=== PATIENT | male | born 1980 | race Caucasian/White ===

== ENCOUNTER 2021-04-10 18:00 | Inpatient (IN) ==
[2021-04-10] MEDS ORDERED: dexAMETHasone**PF** 10 MG/ML VIAL IV ONE (19:14)
[2021-04-10 19:30] LABS: Basophils # (auto) 0.02 K/uL (0-0.2); Basophils % (auto) 0.3 %; Eosinophils # (auto) 0.02 K/uL (0-0.5); Eosinophils % (auto) 0.3 %; Hematocrit (blood only) 38.9 % (42-52); Hemoglobin 13.5 g/dL (14.0-18.0); Immature Granulocytes # (auto) 0.02 K/uL (0.00-0.02); Immature Granulocytes % (auto) 0.3 %; Lymphocytes # (auto) 0.85 K/uL (1.2-3.4); Lymphocytes % (auto) 14.1 %; Mean Corpuscular Hemoglobin 30.6 pg (25-34); Mean Corpuscular Hgb Conc 34.7 g/dL (32-36); Mean Corpuscular Volume 88.2 fL (80-100); Mean Platelet Volume 9.6 fL (7.4-10.4); Monocytes # (auto) 0.51 K/uL (0.11-0.59); Monocytes % (auto) 8.5 %; Neutrophils # (auto) 4.59 K/uL (1.4-6.5); Neutrophils % (auto) 76.5 %; Platelet Count 283 K/uL (130-400); RDW Coefficient of Variation 12.9 % (11.5-14.5); RDW Standard Deviation 41.9 fL (36.4-46.3); Red Blood Count 4.41 M/uL (4.7-6.1); White Blood Count 6.01 K/uL (4.8-10.8)
--- NOTE | 2021-04-10 19:33 | XRay Report ---
XR chest 1V portable CLINICAL HISTORY: cough, covid + COMPARISON STUDY: No previous studies for comparison. FINDINGS: No pneumothorax or pleural effusion is noted. Moderate to extensive multifocal bilateral ai rspace opacities are present. There is mild enlargement of the cardiac silhouette. IMPRESSION: 1. Moderate to extensive airspace opacities within the lungs suggestive of viral pneumonia. 2. Mild enlargement of the cardiac silhouette. ACT 112: Negative or not required by law. Electronically signed by: Joseph Mendez M.D. 04/10/2021 7:31 PM
[2021-04-10] MEDS ORDERED: CEFEPIME 2,000 MG/20 ML VIAL IV STA (19:36)
--- NOTE | 2021-04-10 19:36 | Emergency Department Note ---
History of Present Illness General Chief complaint: Cough Stated complaint: COVID +, NOT GETTING BETTER, SOB, COUGHING Time Seen by Provider: 04/10/21 18:57 History of Present Illness Maximum Pain Intensity: 9 40-year-old male presents to the ED with a chief complaint of increased shortne ss of breath. The patient was diagnosed with Covid on Friday with a home test. He started having symptoms Friday, 9 days ago. The patient states that he had monoclonal antibodies on April 07. He reports some associated nausea and headaches in addition to fevers. His primary reason for coming in today was that his pulse oximetry was running low at home in the 80s. He states that he also feels lightheaded and his breathing is worse with exertion. His [id number], Dr. Finebritney started him on Xarelto. Overall the patient states that his breathing feels worse. He is having a productive cough that is occasionally red/purple Home Medications Medication Instructions Recorded Confirmed Type losartan 25 mg tablet 0 mg PO DAILY 04/10/21 04/10/21 History rivaroxaban 10 mg tablet (Xarelto) 0 mg PO DAILY 04/10/21 04/10/21 History simvastatin 20 mg tablet 20 mg PO DAILY 04/10/21 04/10/21 History Allergies Allergy/AdvReac Type Severity Reaction Status Date / Time No Known Allergies Allergy Unverified 04/10/21 19:38 Past Med/Surg History Medical History (Updated 04/10/21 @ 20:52 by Rosendo Cardenas DO) Asthma High cholesterol Hypertension Social History (Updated 04/10/21 @ 19:54 by Rosendo Cardenas DO) Smoking Status: Former smoker Tobacco Type: Cigarettes Age Quit Using Tobacco: 31; Feels Safe at Home: Yes Review of Systems A total of 10 systems reviewed and were otherwise negative Physical Exam Vital Signs Vital Signs - 24 hr 04/10/21 18:25 04/10/21 19:10 04/10/21 19:25 Temperature 36.8 C 37.2 C Temperature Source Temporal Artery Scan Oral Pulse Rate 98 H Pulse Rate [Left Radial] 95 H Pulse Rhythm [Left Radial] Regular Pulse Strength [Left Radial] Normal Respiratory Rate 20 22 18 Respiratory Effort / Characteristics Non-Labored Spontaneous Spontaneous Labored Short of Breath SOB on Exertion Respiratory Depth Normal Normal Respiratory Pattern Regular Tachypnea Blood Pressure 150/82 H Blood Pressure [Right Arm] 136/82 Blood Pressure Mean 104 Blood Pressure Mean [Right Arm] 100 Blood Pressure Position Sitting Blood Pressure Position [Right Arm] Lying Pulse Oximetry 93 86 L 94 Oxygen Delivery Method Room Air Room Air Nasal Cannula Oxygen Flow Rate 2 Sepsis Recent Fever Within 48 Hours No Sepsis New/Unexplained Change in Mental Status No Sepsis Action Taken by Nursing No Action Required CONSTITUTIONAL/VITAL SIGNS: Reviewed / noted above. GENERAL: Non-toxic in appearance. INTEGUMENTARY: Warm, dry, and [place]. HEAD: Normocephalic. EYES: without scleral icterus or trauma. ENT/OROPHARYNX: clear and moist. LYMPHADENOPATHY/NECK: Is supple without lymphadenopathy or meningismus. RESPIRATORY: Some mild bilateral rhonchi auscultation bilaterally. Mild increased work of breathing. CARDIOVASCULAR: Regular rate and rhythm. GI/ABDOMEN: Soft and nontender. No organomegaly or pulsatile mass. EXTREMITIES: Warm and well perfused. BACK: No CVA tenderness. NEUROLOGICAL: Intact without focal deficits. PSYCHIATRIC: normal affect. MUSCULOSKELETAL: Normally developed with good muscle tone. TRIAGE NURSING DOCUMENTATION REVIEWED. Course Administered Medications Discontinued Medications Dexamethasone Sodium Phosphate (DexamethasonePf 10 Mg/Ml Vial) 10 mg IV NOW ONE Stop: 04/10/21 19:15 Last Admin: 04/10/21 19:20 Dose: 10 mg Documented by: [id number] Cefepime HCl (Maxipime) 2,000 mg in 20 mls @ 5 mls/min IV NOW STA; Protocol Stop: 04/10/21 19:39 Last Admin: 04/10/21 19:41 Dose: 5 mls/min Documented by: [id number] Ioversol (Optiray 320 125ml) 120 ml IV ONCE ONE Stop: 04/10/21 20:13 Last Admin: 04/10/21 20:15 Dose: 120 ml Documented by: [id number] Medical Decision Making Differential Diagnosis The differential was considered includes acute myocardial infarction, acute coronary syndrome, myocarditis, pericarditis, pericardial effusions /tamponad, esophageal perforation, pulmonary embolism, pneumonia, pneumothorax, cardiomyopathy, congestive heart, anemia , COPD/asthma exacerbation. Medical Records Attestation: I reviewed the patient's medical records. Home Medications Current Medication List: was personally reviewed by me Laboratory Data Attestation: I reviewed the patient's lab results. Result diagrams: 04/10/21 19:12 04/10/21 19:12 Lab Results 04/10/21 04/10/21 Range/Units 19:12 19:12 WBC 6.01 (4.8-10.8) K/uL RBC 4.41 L (4.7-6.1) M/uL Hgb 13.5 L (14.0-18.0) g/dL Hct 38.9 L (42-52) % MCV 88.2 (80-100) fL MCH 30.6 (25-34) pg MCHC 34.7 (32-36) g/dL RDW Std Deviation 41.9 (36.4-46.3) fL RDW Coeff of [place] 12.9 (11.5-14.5) % Plt Count 283 (130-400) K/uL MPV 9.6 (7.4-10.4) fL Immature Gran % (Auto) 0.3 % Neut % (Auto) 76.5 % Lymph % (Auto) 14.1 % [place] % (Auto) 8.5 % Eos % (Auto) 0.3 % Baso % (Auto) 0.3 % Neut # (Auto) 4.59 (1.4-6.5) K/uL Lymph # (Auto) 0.85 L (1.2-3.4) K/uL [place] # (Auto) 0.51 (0.11-0.59) K/uL Eos # (Auto) 0.02 (0-0.5) K/uL Baso # (Auto) 0.02 (0-0.2) K/uL Immature Gran # (Auto) 0.02 (0.00-0.02) K/uL Sodium 136 (136-145) mmol/L Potassium 3.6 (3.5-5.1) mmol/L Chloride 104 (98-107) mmol/L Carbon Dioxide 25 (21-32) mmol/L Anion Gap 7.0 (3-11) BUN 10 (7-18) mg/dl Creatinine 0.81 (0.6-1.4) mg/dl Est Cr Clr Drug Dosing 158.2 ml/min Est GFR ( Amer) 129.8 ml/min Est GFR (Non-Af Amer) 112.0 ml/min BUN/Creatinine Ratio 12.7 (10-20) Glucose 109 H (70-99) mg/dl Calcium 8.9 (8.5-10.1) mg/dl Total Bilirubin 0.9 (0.2-1) mg/dl AST 99 H (15-37) U/L ALT 98 H (12-78) Alkaline Phosphatase 66 (45-117) U/L Troponin I < 0.015 (0-0.045) ng/ml Total Protein 7.4 (6.4-8.2) gm/dl Albumin 3.2 L (3.4-5.0) gm/dl Globulin 4.2 H (2.5-4.0) gm/dl Albumin/Globulin Ratio 0.8 L (0.9-2) Imaging Data Radiologist's Impression: Chest X-Ray 04/10/21 18:35 XR chest 1V portable CLINICAL HISTORY: cough, covid + COMPARISON STUDY: No previous studies for comparison. FINDINGS: No pneumothorax or pleural effusion is noted. Moderate to extensive multifocal bilateral airspace opacities are present. There is mild enlargement of the cardiac silhouette. IMPRESSION: 1. Moderate to extensive airspace opacities within the lungs suggestive of viral pneumonia. 2. Mild enlargement of the cardiac silhouette. ACT 112: Negative or not required by law. Electronically signed by: Joseph Mendez M.D. 04/10/2021 7:31 PM Chest CTA 04/10/21 19:14 CT ANGIOGRAPHY OF THE CHEST, PULMONARY EMBOLUS PROTOCOL CLINICAL HISTORY: covid, sob COMPARISON STUDY: Chest radiograph performed earlier today. TECHNIQUE: Following IV administration of 120 mL of Optiray, helical axial images of the chest were obtained utilizing the pulmonary embolus protocol. Maximal intensity projections and sagittal and coronal reformats were viewed on an independent 3D workstation. IV contrast was administered without complication. Automated exposure control was utilized for the study. A dose lowering technique was utilized adhering to the principles of ALARA. CT DOSE: 848.71 mGy.cm FINDINGS: No pulmonary emboli are identified. There is no thoracic aortic dissection. There is no pericardial effusion. No enlarged thoracic lymph nodes are noted. Extensive ground glass opacities with developing consolidation throughout the lungs are noted. These are most pronounced within the bilateral lower lobes. There is no cavitation. No pneumothorax or pleural effusion is noted. Visualized portions of the upper abdomen are unremarkable. IMPRESSION: 1. No pulmonary emboli identified. 2. Extensive groundglass opacities with developing consolidation throughout the lungs consistent with viral pneumonia. ACT 112: Negative or not required by law. Electronically signed by: Joseph Mendez M.D. 04/10/2021 8:36 PM ECG Data Attestation: I personally reviewed and interpreted this ECG as follows: Additional Comments: Twelve-lead EKG: Per my interpretation shows a normal sinus rhythm at a rate of 85. No ST elevation. No PVCs. Normal QTC. MDM Narrative Patient presents to the ED with a diagnosis of Covid. He is day #9 from onset of symptoms. He has had monoclonal antibodies 3 days ago. The patient was found to be hypoxic here in the ED. His saturations with ambulation was 87%. At rest he was around 88-90. The patient has a chest x-ray showing bilateral pneumonia. CT scan confirms this. No PE. CBC and chemistry panel did not show any significant abnormalities other than a mild transaminitis likely viral related. EKG showed a normal sinus rhythm. The patient was given IV Decadron. He was also given IV cefepime empirically. He will be seen by the hospitalist for further inpatient evaluation and care. Impression & Plan 2019 novel coronavirus-infected pneumonia (NCIP), Hypoxia Discharge Plan Visit Data Chief Complaint: Cough Stated Complaint: COVID +, NOT GETTING BETTER, SOB, COUGHING ED Provider: Rosendo Cardenas Discharge Problem: 2019 novel coronavirus-infected pneumonia (NCIP), Hypoxia Patient Disposition: Being Evaluated by Hospitalist Forms Stand Alone Forms: My [facility] Prescriptions Prescriptions: No Action simvastatin 20 mg Tablet 20 mg PO DAILY RF: 0 losartan 25 mg Tablet 0 mg PO DAILY RF: 0 Xarelto 10 mg Tablet 0 mg PO DAILY RF: 0 Referrals Referrals: PCP,NO [Primary Care Provider] -
[2021-04-10 19:59] LABS: Alanine Aminotransferase 98 (12-78); Albumin Level 3.2 gm/dl (3.4-5.0); Aspartate Aminotransferase 99 U/L (15-37); BUN Creatinine Ratio 12.7 (10-20); Blood Urea Nitrogen 10 mg/dl (7-18); Calcium 8.9 mg/dl (8.5-10.1); Carbon Dioxide 25 mmol/L (21-32); Chloride 104 mmol/L (98-107); Creatinine Clr Calc Pharmacy 158.2 ml/min; Est GFR (African American) 129.8 ml/min; Glucose 109 mg/dl (70-99); Potassium 3.6 mmol/L (3.5-5.1); Sodium 136 mmol/L (136-145)
[2021-04-10 20:01] LABS: Albumin Globulin Ratio 0.8 (0.9-2); Alkaline Phosphatase 66 U/L (45-117); Bilirubin,Total 0.9 mg/dl (0.2-1); Globulin 4.2 gm/dl (2.5-4.0); Total Protein 7.4 gm/dl (6.4-8.2)
[2021-04-10] MEDS ORDERED: OPTIRAY 320 125ml IV ONE (20:12)
[2021-04-10 20:32] LABS: Troponin I < 0.015 ng/ml (0-0.045)
--- NOTE | 2021-04-10 20:37 | CT Scan Report ---
CT ANGIOGRAPHY OF THE CHEST, PULMONARY EMBOLUS PROTOCOL CLINICAL HISTORY: covid, sob COMPARISON STUDY: Chest radiograph performed earlier today. TECHNIQUE: Following IV administration of 120 mL of Optiray, helical axial images of the chest were o btained utilizing the pulmonary embolus protocol. Maximal intensity projections and sagittal and cor onal reformats were viewed on an independent 3D workstation. IV contrast was administered without co mplication. Automated exposure control was utilized for the study. A dose lowering technique was ut ilized adhering to the principles of ALARA. CT DOSE: 848.71 mGy.cm FINDINGS: No pulmonary emboli are identified. There is no thoracic aortic dissection. There is no pe ricardial effusion. No enlarged thoracic lymph nodes are noted. Extensive ground glass opacities with developing consolidation throughout the lungs are noted. These are most pronounced within the bilate ral lower lobes. There is no cavitation. No pneumothorax or pleural effusion is noted. Visualized por tions of the upper abdomen are unremarkable. IMPRESSION: 1. No pulmonary emboli identified. 2. Extensive groundglass opacities with developing consolidation throughout the lungs consistent with viral pneumonia. ACT 112: Negative or not required by law. Electronically signed by: Jsoeph Mendez M.D. 04/10/2021 8:36 PM
[2021-04-10 20:55] LABS: Appearance Urine Clear (Clear); Bacteria Urine Automated Negative (Negative); Blood Urine Negative (Negative); Color Urine Dark Yellow; Glucose Urine UA Negative (Negative); Ketones Urine 2+ (Negative); Leukocyte Esterase Urine Negative (Negative); Nitrite Urine Negative (Negative); Protein Urine 2+ (Negative); RBC Urine Automated 0-4 /hpf (0-4); Specific Gravity Urine 1.032 (1.000-1.030); Urobilinogen Urine Negative (Negative); pH Urine 6.5 (4.5-7.5)
[2021-04-10 20:57] LABS: Bilirubin Urine 1+ (Negative)
[2021-04-10] MEDS ORDERED: REMDESIVIR 200 MG in SODIUM CHLORIDE 0.9% 210 ML IV STA (21:01)
[2021-04-10] MEDS ORDERED: AZITHROMYCIN 250 MG TAB PO STA (21:04)
[2021-04-10 21:15] LABS: C Reactive Protein 7.22 mg/dl (0-0.29); Ferritin 785.6 ng/ml (8-388)
[2021-04-10] MEDS ORDERED: FAMOTIDINE 20MG/5ML IV PUSH IV STA (21:26)
--- NOTE | 2021-04-10 21:44 | History & Physical Report ---
Date of Service April 10, 2021 Assessment & Plan (1) 2019 novel coronavirus-infected pneumonia (NCIP): Plan: Milton is a 40 yo gentleman who tested positive for covid 19 on 04/03/21 who presented to [facility] for worening respiratory symptoms de spite receiving monoclonal antibody therapy. - COVID 19 positive on admission -- severe disease - CXR and Chest CTA showing signs of virla PNA. Procal ordered to assess for superimposed bacterial process - not elevated. - hypoxic on admission -- O2 sat improved with 2L via NC - LDH elevated to 555, CRP to 7.22 mg/dl. Patient not a candidate for tocilizumab due to CRP < 7.5 mg/dl - Start Remdesirivir - Continue Dexamethasone 6mg IV for 9 additional days - Azithromycin 500mg given on admission; 250mg daily for 6 days thereafter - Duonebs q6 prn (2) Elevated transaminase level: Plan: - LFTs < 10 times the upper limit of normal, Remdesirvir safe to use - elevation likely secondary to acute viral illness - trend CMP (3) High cholesterol: Plan: - continue home dose simvastatin (4) Hypertension: Plan: - continue home dose losartan (5) Asthma: Plan: - mild intermittent - duo nebs as above Diet: Heart Healthy DVT ppx: Lovenox 40mg SQ q12 Dispo: Med/tele with covid 19 precautions COde: Full, I discuss with patient History of Present Illness Primary Care Provider: NO PCP Milton is a 40 yo gentleman with a PMHx of hypertension, hyperlipidemia and mild-intermittent asthma who presented to [facility] for evaluation of worsening oxygen saturation, dyspnea on exertion, and coughing spells. Milton developed a constellation of symptoms (general malaise, fever, cough, headache, nausea/vomiting, diarrhea) on 04/02/21. The next day, on 04/03/21 he took an at-home covid-19 test and it was positive. He went to a hospital in [place], [place] on 04/07/21 for evaluation of worsening symptoms - this facility did not have any monoclonal antibodies for covid 19 in stock - they recommended supportive care and discharged him from their emergency department. Later that same day, he went to [facility] in [place], [place] where he was administered a dose of "a monoclonal antibody - the one that works against omicron," (sotrovimab?). Since receiving this therapy, his fevers have resolved, however the respiratory symptoms have progressed. 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 Milton had not been immunized against covid 19. In the ED, he was afebrile with a HR of 95bpm, BP of 139/82, RR of 18, satting 86% on room air. O2 saturation improved to 94% with 2L of supplement O2 via NC. His WBC was normal, although he was lymphopenic. His kidney function and electrolytes wer WNL. AST elevated to 99, ALT elevated to 98. Trop was undetectable. UA was not concerning for infection. A quad RVP was + for covid 19, neg for Flu A/B and RSV. EKG showing NSR without acute ST segment changes. CXR showing moderate to extensive airspace opacities within lungs, consistent with a viral PNA. Chest CTA was negative for pulmonary embolus, but extensive groundglass opacities with developing consolidation throughout the lungs were visualized. He was given 10mg of IV Dexamethasone. Allergies Allergy/AdvReac Type Severity Reaction Status Date / Time No Known Allergies Allergy Unverified 04/10/21 19:38 Home Medications Medication Instructions Recorded Confirmed Type losartan 25 mg tablet 0 mg PO DAILY 04/10/21 04/10/21 History rivaroxaban 10 mg tablet (Xarelto) 0 mg PO DAILY 04/10/21 04/10/21 History simvastatin 20 mg tablet 20 mg PO DAILY 04/10/21 04/10/21 History Past Med/Surg History Medical History (Updated 04/11/21 @ 16:31 by Andi Claudio MD) Asthma High cholesterol Hypertension Social History (Updated 04/10/21 @ 19:54 by Rosendo Cardenas DO) Smoking Status: Former smoker Tobacco Type: Cigarettes Age Quit Using Tobacco: 31; Hx Alcohol Use: Yes Alcohol type: beer and hard liquor Hx Substance Use: No Beliefs That Will Affect Care: None marital status: Current Living Situation: Spouse and Family Current Living Situation Comment: Home Feels Safe at Home: Yes Safety Concerns: Feels Safe At This Time Assistive Devices: None Review of Systems Constitutional: + fatigue Respiratory: + cough and + dyspnea on exertion Gastrointestinal: + nausea and + diarrhea/loose stools Physical Exam Constitutional: WD/WN, vitals as above + obese and cooperative; no acute distress and no altered mental status Eyes: + anicteric sclerae ENMT: external ear and nose normal, oropharynx normal Neck: normal visual inspection and trachea midline Respiratory: normal respiratory effort and + cough; no labored breathing and does not use accessory muscles Auscultation: + diminished lung sounds (air movement restricted b/l); no wheezes Cardiovascular: RRR, no murmur, no edema Heart Sounds: normal S1 and normal S2 Extremities: no pedal edema Gastrointestinal (Abdomen): normal bowel sounds, soft, nontender, no hepatosplenomegaly Musculoskeletal: Head/Neck/Chest: normocephalic and head atraumatic Skin: no rashes, warm and dry Psychiatric: A+Ox3, euthymic affect Results & Data Results & Data ([facility]) Vital Signs (Past 12 Hours) Vital Signs Temp Pulse Pulse Resp BP BP Pulse Ox 04/10/21 21:13 80 20 128/83 95 04/10/21 19:25 18 94 04/10/21 19:10 37.2 C 95 H 22 136/82 86 L 04/10/21 18:25 36.8 C 98 H 20 150/82 H 93 Code Status & VTE Plan VTE Prophylaxis Plan VTE Prophylaxis will be ordered: Yes Supervising Physician Co-Signing Physician Notes Attending addendum: I have physically seen this patient, have supervised the medical residents activities, and agree with the H&P unless as otherwise noted. Assessment and Plan: COVID-19 pneumonia with hypoxia- Dexamethasone 6 mg IV every morning Remdesivir IV per protocol Azithromycin 500 mg IV daily Duonebs every 4 hours while awake and every 2 hours when necessary. Vitamin D 1000 international units p.o. daily Guaifenesin extended release 1200 mg p.o. every 12 hours Zinc sulfate 220 mg p.o. every morning Nasal cannula oxygen, titrate to keep pulse ox 92-94% Remaining orders and notations as noted Resident Activity Tracking Resident Involvement: Resident Care Provided Care Provided: Adult Hospital Medicine
[2021-04-10 22:07] LABS: Influenza A virus by PCR Negative (Neg); Influenza B virus by PCR Negative (Neg); RSV by PCR Negative (Neg)
[2021-04-10 22:09] LABS: SARS CoV2 RNA(COVID-19) InHosp POSITIVE (Negative)
[2021-04-10] MEDS: SODIUM CHLORIDE 0.9% 10ML FLUSH IV SCH (22:34)
[2021-04-10] MEDS ORDERED: ACETAMINOPHEN 325 MG TAB PO PRN (23:18)
[2021-04-10] MEDS ORDERED: ONDANSETRON INJ 2 MG/ML 2 ML VIAL IV PRN (23:18)
[2021-04-10] MEDS ORDERED: ALBUTEROL 0.083% NEBU SOLN 3 ML VIAL NEB PRN (23:18)
[2021-04-11] MEDS: ENOXAPARIN INJ 40 MG/0.4 ML SYR SQ SCH ×2 (01:08→08:14)
[2021-04-11 06:56] LABS: Basophils # (auto) 0.01 K/uL (0-0.2); Basophils % (auto) 0.2 %; Hematocrit (blood only) 38.9 % (42-52); Hemoglobin 13.2 g/dL (14.0-18.0); Immature Granulocytes # (auto) 0.02 K/uL (0.00-0.02); Immature Granulocytes % (auto) 0.4 %; Lymphocytes # (auto) 0.66 K/uL (1.2-3.4); Lymphocytes % (auto) 13.8 %; Mean Corpuscular Hemoglobin 30.2 pg (25-34); Mean Corpuscular Hgb Conc 33.9 g/dL (32-36); Mean Platelet Volume 9.5 fL (7.4-10.4); Monocytes # (auto) 0.22 K/uL (0.11-0.59); Monocytes % (auto) 4.6 %; Neutrophils # (auto) 3.89 K/uL (1.4-6.5); Platelet Count 304 K/uL (130-400); RDW Coefficient of Variation 12.7 % (11.5-14.5); RDW Standard Deviation 41.7 fL (36.4-46.3); Red Blood Count 4.37 M/uL (4.7-6.1)
[2021-04-11 07:22] LABS: BUN Creatinine Ratio 14.8 (10-20); Calcium 8.4 mg/dl (8.5-10.1); Creatinine Clr Calc Pharmacy 172.3 ml/min; Est GFR (African American) 131.8 ml/min; Est GFR (Non-African American) 113.7 ml/min; Magnesium 2.6 mg/dl (1.8-2.4); Potassium 4.1 mmol/L (3.5-5.1)
[2021-04-11] MEDS: dexAMETHasone 6 MG in SYRINGE 0 ML IV SCH (08:14)
[2021-04-11] MEDS: SIMVASTATIN 20 MG TAB PO SCH (08:14)
[2021-04-11] MEDS: LOSARTAN POTASSIUM 25 MG TAB PO SCH (08:14)
--- NOTE | 2021-04-11 11:16 | Electrocardiogram Report ---
Test Reason : Blood Pressure : / mmHG Vent. Rate : 085 BPM Atrial Rate : 085 BPM P-R Int : 158 ms QRS Dur : 096 ms QT Int : 398 ms P-R-T Axes : 065 051 006 degrees QTc Int : 473 ms Normal sinus rhythm Possible Left atrial enlargement Nonspecific ST abnormality Borderline ECG No previous ECGs available Confirmed by Kenney Hernandez ([id number]) on 04/11/2021 11:16:04 AM Referred By: REFERRED SELF Confirmed By:Los Hernandez
--- NOTE | 2021-04-11 16:36 | Hospitalist Progress Note ---
Date of Service April 11, 2021 Assessment & Plan (1) 2019 novel coronavirus-infected pneumonia (NCIP): Plan: First symptoms: 04/02/2021 First tested: 04/03/2021 Admission date: 04/10/2021 Admission O2 requirement: 2L Admission CRP: 7.2 Dexamethasone course started: 04/10/2021; End date: 04/19/2020 Remdesivir started: 04/10/2021 Tocilizumab/baricitinib contraindication: Not high enough O2 demand Antibiotics: Initially on azithromycin, but procal negative. Stopped on 04/11. DVT ppx: Lovenox 40 mg SQ daily Breathing treatments: Albuterol PRN Presently requiring room air at rest. Can test with exertion. He was asked to prone and move up and around throughout the room. (2) Hypertension: Plan: BP presently 125/75. - Continue home losartan. (3) High cholesterol: Plan: - Continue statin (4) DVT prophylaxis: Plan: Lovenox 40 mg SQ daily (5) Asthma: Admission and Anticipated Discharge Date Admission Date: April 10, 2021 Subjective Feeling better today. Better appetite today. Less shortness of breath. Reports no fevers/chills, chest pain, abdominal pain, nausea, or vomiting. Physical Exam Constitutional: WD/WN, vitals as above Eyes: EOM intact bilaterally; no conjunctival abnormality ENMT: external ear and nose normal, oropharynx normal Neck: trachea midline, no thyromegaly normal visual inspection Respiratory: normal respiratory effort, lungs clear to auscultation no respiratory distress Cardiovascular: RRR, no murmur, no edema Gastrointestinal (Abdomen): Inspection/Auscultation: abdomen normal to inspection; abdomen not distended Musculoskeletal: no cyanosis or clubbing, extremities motor strength 5/5 Skin: no rashes, warm and dry Neurologic: moves all extremities and awake Psychiatric: Orientation: alert, oriented to person and cooperative Results & Data Results & Data ([facility]) Vital Signs (Past 12 Hours) Vital Signs Temp Pulse Pulse Resp BP Pulse Ox 04/11/21 15:41 36.6 C 74 18 125/74 91 04/11/21 15:00 79 04/11/21 12:36 36.9 C 81 19 146/86 H 95 04/11/21 09:33 36.4 C L 93 H 19 135/83 95 04/11/21 08:09 65 PG Care Time/CCT Total # of Minutes Spent Total Time Spent with Patient: Total time spent is greater than 50% in coordination of care (as documented) at patient's floor/unit and/or counseling patient: Coding Level of Care Code 02742 Subseq Hosp Care Lvl 2 Diagnoses 2019 novel coronavirus-infected pneumonia (NCIP) U07.1; J12.82 Hypertension I10 High cholesterol E78.00 DVT prophylaxis Z29.9 Asthma J45.909
[2021-04-11] MEDS ORDERED: REMDESIVIR 100 MG in SODIUM CHLORIDE 0.9% 230 ML IV SCH (20:00)
[2021-04-11] MEDS: SODIUM CHLORIDE 0.9% 10ML FLUSH IV SCH (20:22)
[2021-04-11] MEDS ORDERED: AZITHROMYCIN 250 MG TAB PO SCH (21:00)
--- NOTE | 2021-04-11 21:30 | Billing Data ---
Date of Service April 11, 2021 Coding Level of Care Code 23088 Initial Inpt Care Lvl 3
[2021-04-12 06:49] LABS: Hemoglobin 12.7 g/dL (14.0-18.0); Mean Corpuscular Hemoglobin 29.8 pg (25-34); Mean Corpuscular Hgb Conc 33.4 g/dL (32-36); Mean Corpuscular Volume 89.2 fL (80-100); Mean Platelet Volume 9.4 fL (7.4-10.4); Platelet Count 411 K/uL (130-400); RDW Coefficient of Variation 12.8 % (11.5-14.5); RDW Standard Deviation 41.9 fL (36.4-46.3); Red Blood Count 4.26 M/uL (4.7-6.1); White Blood Count 11.73 K/uL (4.8-10.8)
[2021-04-12] MEDS: dexAMETHasone 6 MG in SYRINGE 0 ML IV SCH (07:15)
[2021-04-12] MEDS: LOSARTAN POTASSIUM 25 MG TAB PO SCH (07:15)
[2021-04-12] MEDS: ENOXAPARIN INJ 40 MG/0.4 ML SYR SQ SCH (07:15)
[2021-04-12] MEDS: SIMVASTATIN 20 MG TAB PO SCH (07:16)
[2021-04-12 07:20] LABS: Basophils # (auto) 0.03 K/uL (0-0.2); Basophils % (auto) 0.3 %; Calcium 8.6 mg/dl (8.5-10.1); Creatinine Clr Calc Pharmacy 148.8 ml/min; Eosinophils # (auto) 0.01 K/uL (0-0.5); Eosinophils % (auto) 0.1 %; Est GFR (African American) 124.3 ml/min; Est GFR (Non-African American) 107.2 ml/min; Immature Granulocytes # (auto) 0.07 K/uL (0.00-0.02); Immature Granulocytes % (auto) 0.6 %; Lymphocytes # (auto) 1.65 K/uL (1.2-3.4); Lymphocytes % (auto) 14.1 %; Magnesium 2.6 mg/dl (1.8-2.4); Monocytes # (auto) 0.97 K/uL (0.11-0.59); Monocytes % (auto) 8.3 %; Neutrophils % (auto) 76.6 %; Potassium 3.9 mmol/L (3.5-5.1)
[2021-04-12 08:34] LABS: Alanine Aminotransferase 189 (12-78); Albumin Level 2.7 gm/dl (3.4-5.0); Alkaline Phosphatase 73 U/L (45-117); Aspartate Aminotransferase 106 U/L (15-37); Bilirubin Direct < 0.1 mg/dl (0-0.2); Total Protein 6.7 gm/dl (6.4-8.2)
[2021-04-12 10:03] LABS: Bilirubin,Total 0.5 mg/dl (0.2-1)
--- NOTE | 2021-04-12 16:25 | Hospitalist Progress Note ---
Date of Service April 12, 2021 Assessment & Plan (1) 2019 novel coronavirus-infected pneumonia (NCIP): Plan: First symptoms: 04/02/2021 First tested: 04/03/2021 Admission date: 04/10/2021 Admission O2 requirement: 2L Admission CRP: 7.2 Dexamethasone course started: 04/10/2021; End date: 04/19/2020 Remdesivir started: 04/10/2021 Tocilizumab/baricitinib contraindication: Not high enough O2 demand Antibiotics: Initially on azithromycin, but procal negative. Stopped on 04/11. DVT ppx: Lovenox 40 mg SQ daily Breathing treatments: Albuterol PRN Presently requiring room air at rest. Moving around without the lightheadedness and dizziness. No drop in O2 when moving around. (2) Hypertension: Plan: BP presently 115/75. - Continue home losartan. (3) High cholesterol: Plan: - Continue statin (4) DVT prophylaxis: Plan: Lovenox 40 mg SQ daily (5) Asthma: Admission and Anticipated Discharge Date Admission Date: April 10, 2021 Subjective Feeling better today. Better appetite today. Less shortness of breath. Reports no fevers/chills, chest pain, abdominal pain, nausea, or vomiting. Physical Exam Constitutional: WD/WN, vitals as above Eyes: EOM intact bilaterally; no conjunctival abnormality ENMT: external ear and nose normal, oropharynx normal Neck: trachea midline, no thyromegaly normal visual inspection Respiratory: normal respiratory effort, lungs clear to auscultation no respiratory distress Cardiovascular: RRR, no murmur, no edema Gastrointestinal (Abdomen): Inspection/Auscultation: abdomen normal to inspection; abdomen not distended Musculoskeletal: no cyanosis or clubbing, extremities motor strength 5/5 Skin: no rashes, warm and dry Neurologic: moves all extremities and awake Psychiatric: Orientation: alert, oriented to person and cooperative Results & Data Results & Data ([facility]) Vital Signs (Past 12 Hours) Vital Signs Temp Pulse Pulse Resp BP BP Pulse Ox 04/12/21 15:03 78 04/12/21 15:00 36.5 C 65 20 113/74 94 04/12/21 11:34 36.6 C 71 19 110/71 90 04/12/21 08:39 36.6 C 54 L 19 109/75 96 04/12/21 08:00 64 PG Care Time/CCT Total # of Minutes Spent Total Time Spent with Patient: Total time spent is greater than 50% in coordination of care (as documented) at patient's floor/unit and/or counseling patient: Coding Level of Care Code 61099 Subseq Hosp Care Lvl 2 Diagnoses 2019 novel coronavirus-infected pneumonia (NCIP) U07.1; J12.82 Hypertension I10 High cholesterol E78.00 DVT prophylaxis Z29.9 Asthma J45.909
[2021-04-12] MEDS: SODIUM CHLORIDE 0.9% 10ML FLUSH IV SCH (20:18)
[2021-04-13 06:31] LABS: Basophils # (auto) 0.01 K/uL (0-0.2); Basophils % (auto) 0.1 %; Eosinophils # (auto) 0.03 K/uL (0-0.5); Eosinophils % (auto) 0.2 %; Hematocrit (blood only) 36.7 % (42-52); Hemoglobin 12.2 g/dL (14.0-18.0); Immature Granulocytes # (auto) 0.17 K/uL (0.00-0.02); Immature Granulocytes % (auto) 1.2 %; Lymphocytes # (auto) 1.52 K/uL (1.2-3.4); Lymphocytes % (auto) 10.9 %; Mean Corpuscular Hemoglobin 29.7 pg (25-34); Mean Corpuscular Hgb Conc 33.2 g/dL (32-36); Mean Corpuscular Volume 89.3 fL (80-100); Mean Platelet Volume 9.4 fL (7.4-10.4); Monocytes # (auto) 1.18 K/uL (0.11-0.59); Monocytes % (auto) 8.4 %; Neutrophils # (auto) 11.08 K/uL (1.4-6.5); Neutrophils % (auto) 79.2 %; Platelet Count 409 K/uL (130-400); RDW Standard Deviation 42.3 fL (36.4-46.3); Red Blood Count 4.11 M/uL (4.7-6.1); White Blood Count 13.99 K/uL (4.8-10.8)
[2021-04-13 07:08] LABS: Albumin Level 2.7 gm/dl (3.4-5.0); BUN Creatinine Ratio 20.7 (10-20); Calcium 8.4 mg/dl (8.5-10.1); Creatinine Clr Calc Pharmacy 167.8 ml/min; Est GFR (African American) 130.4 ml/min; Est GFR (Non-African American) 112.5 ml/min; Magnesium 2.4 mg/dl (1.8-2.4); Potassium 3.7 mmol/L (3.5-5.1)
[2021-04-13 07:11] LABS: Albumin Globulin Ratio 0.8 (0.9-2); Bilirubin,Total 0.5 mg/dl (0.2-1); Globulin 3.5 gm/dl (2.5-4.0); Total Protein 6.2 gm/dl (6.4-8.2)
[2021-04-13] MEDS: dexAMETHasone 6 MG in SYRINGE 0 ML IV SCH (09:22)
[2021-04-13] MEDS: ENOXAPARIN INJ 40 MG/0.4 ML SYR SQ SCH (09:22)
[2021-04-13] MEDS: LOSARTAN POTASSIUM 25 MG TAB PO SCH (09:23)
--- NOTE | 2021-04-13 10:02 | XRay Report ---
XR chest 1V portable HISTORY: Covid positive. Hypoxemia COMPARISON: Chest 04/10/2021. FINDINGS: Multifocal bilateral airspace opacities are again noted. These have slightly improved in th e interval. No pneumothorax. No pleural effusions. The heart remains top normal in size. IMPRESSION: Slight improvement in the multifocal bilateral airspace opacities consistent with a viral pneumonia. ACT 112: Negative or not required by law. Electronically signed by: Mustapha Rowe M.D. 04/13/2021 10:01 AM
--- NOTE | 2021-04-13 12:59 | Hospitalist Progress Note ---
Date of Service April 13, 2021 Assessment & Plan (1) 2019 novel coronavirus-infected pneumonia (NCIP): Plan: First symptoms: 04/02/2021 First tested: 04/03/2021 Admission date: 04/10/2021 Admission O2 requirement: 2L Admission CRP: 7.2 Dexamethasone course started: 04/10/2021; End date: 04/19/2020 Remdesivir started: 04/10/2021 Tocilizumab/baricitinib contraindication: Not high enough O2 demand Antibiotics: Initially on azithromycin, but procal negative. Stopped on 04/11. DVT ppx: Lovenox 40 mg SQ daily Breathing treatments: Albuterol PRN Presently requiring room air at rest. Moving around without the lightheadedness and dizziness. No drop in O2 when moving around. (2) Hypertension: Plan: BP presently 120/75. - Continue home losartan. (3) High cholesterol: Plan: - Held statin for a day or two for mild elevated LFTs. Can probably restart on discharge. (4) DVT prophylaxis: Plan: Lovenox 40 mg SQ daily (5) Asthma: Admission and Anticipated Discharge Date Admission Date: April 10, 2021 Subjective Kind of stable today. Had some lower O2 early in the morning, but improved with coughing up some sputum. Still feeling a bit lightheaded. Reports no fevers/chills, chest pain, abdominal pain, nausea, or vomiting. Physical Exam Constitutional: WD/WN, vitals as above Eyes: EOM intact bilaterally; no conjunctival abnormality ENMT: external ear and nose normal, oropharynx normal Neck: trachea midline, no thyromegaly normal visual inspection Respiratory: normal respiratory effort, lungs clear to auscultation no respiratory distress Cardiovascular: RRR, no murmur, no edema Gastrointestinal (Abdomen): Inspection/Auscultation: abdomen normal to inspection; abdomen not distended Musculoskeletal: no cyanosis or clubbing, extremities motor strength 5/5 Skin: no rashes, warm and dry Neurologic: moves all extremities and awake Psychiatric: Orientation: alert, oriented to person and cooperative Results & Data Results & Data ([facility]) Vital Signs (Past 12 Hours) Vital Signs Temp Pulse Pulse Pulse Pulse Pulse Resp 04/13/21 12:10 36.8 C 77 20 04/13/21 10:51 99 H 84 79 04/13/21 09:00 61 12/31/21 08:20 36.5 C 74 22 04/13/21 03:39 36.5 C 70 18 Resp Resp Resp BP BP Pulse Ox Pulse Ox 04/13/21 12:10 122/79 94 04/13/21 10:51 18 18 16 91 04/13/21 09:00 04/13/21 08:20 117/76 92 04/13/21 03:39 109/72 95 Pulse Ox Pulse Ox 04/13/21 12:10 04/13/21 10:51 95 97 04/13/21 09:00 04/13/21 08:20 04/13/21 03:39 PG Care Time/CCT Total # of Minutes Spent Total Time Spent with Patient: Total time spent is greater than 50% in coordination of care (as documented) at patient's floor/unit and/or counseling patient: Coding Level of Care Code 10322 Subseq Hosp Care Lvl 2 Diagnoses 2019 novel coronavirus-infected pneumonia (NCIP) U07.1; J12.82 Hypertension I10 High cholesterol E78.00 DVT prophylaxis Z29.9 Asthma J45.909
[2021-04-13] MEDS: SODIUM CHLORIDE 0.9% 10ML FLUSH IV SCH (20:09)
[2021-04-14 07:43] LABS: Alanine Aminotransferase 136 (12-78); Aspartate Aminotransferase 37 U/L (15-37)
[2021-04-14] MEDS: LOSARTAN POTASSIUM 25 MG TAB PO SCH (09:30)
[2021-04-14] MEDS: dexAMETHasone 6 MG in SYRINGE 0 ML IV SCH (09:30)
[2021-04-14] MEDS: ENOXAPARIN INJ 40 MG/0.4 ML SYR SQ SCH (09:30)
--- NOTE | 2021-04-14 18:55 | Discharge Summary ---
Date of Service April 14, 2021 Admission HPI Per Admitting Provider Milton is a 40 yo gentleman with a PMHx of hypertension, hyperlipidemia and mild-intermittent asthma who presented to [facility] for evaluation of worsening oxygen saturation, dyspnea on exertion, and coughing spells. Miltno developed a constellation of symptoms (general malaise, fever, cough, headache, nausea/vomiting, diarrhea) on 04/02/21. The next day, on 04/03/21 he took an at-home covid-19 test and it was positive. He went to a hospital in [place], [place] on 04/07/21 for evaluation of worsening symptoms - this facility did not have any monoclonal antibodies for covid 19 in stock - they recommended supportive care and discharged him from their emergency department. Later that same day, he went to [facility] in [place], [place] where he was administered a dose of "a monoclonal antibody - the one that works against omicron," (sotrovimab?). Since receiving this therapy, his fevers have resolved, however the respiratory symptoms have progressed. 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 Johnson - he started Milton on Xarelto for blood clot prevention after he was diagnosed with COVID 19. Milton had not been immunized against covid 19. In the ED, he was afebrile with a HR of 95bpm, BP of 139/82, RR of 18, satting 86% on room air. O2 saturation improved to 94% with 2L of supplement O2 via NC. His WBC was normal, although he was lymphopenic. His kidney function and electrolytes wer WNL. AST elevated to 99, ALT elevated to 98. Trop was undetectable. UA was not concerning for infection. A quad RVP was + for covid 19, neg for Flu A/B and RSV. EKG showing NSR without acute ST segment changes. CXR showing moderate to extensive airspace opacities within lungs, consistent with a viral PNA. Chest CTA was negative for pulmonary embolus, but extensive groundglass opacities with developing consolidation throughout the lungs were visualized. He was given 10mg of IV Dexamethasone. Principal Diagnosis covid pneumonia Discharge Exam gen aao [facility] heent nc at mmm lungs cta b/l no rr//w good effort no accessory muscles good effort skin no rashes no pallor or icterus neuro no focal deficits Discharge Data Allergies Allergy/AdvReac Type Severity Reaction Status Date / Time No Known Allergies Allergy Unverified 04/10/21 19:38 Consultations 04/10/21 20:40 ED Decision to Admit Stat Ordered Studies 04/10/21 19:14 CT angio chest PE protocol Stat Hospital Course (1) 2018 novel coronavirus-infected pneumonia (NCIP): First symptoms: 04/02/2021 First tested: 04/03/2021 Admission date: 04/10/2021 Admission O2 requirement: 2L Admission CRP: 7.2 Dexamethasone course started: 04/10/2021; End date: 04/19/2020 Remdesivir started: 04/10/2021 Tocilizumab/baricitinib contraindication: Not high enough O2 demand Antibiotics: Initially on azithromycin, but procal negative. Stopped on 04/11. DVT ppx: Lovenox 40 mg SQ daily Breathing treatments: Albuterol PRN stable for home (2) Hypertension: - Continue home losartan. (3) High cholesterol: - Held statin for a day or two for mild elevated LFTs. Can restart on discharge. (4) DVT prophylaxis: Lovenox 40 mg SQ daily (5) Asthma: Total Time Total Time Spent Total Time Spent (In Minutes): <30 Discharge Plan Discharge Items Patient Disposition: Home - Self-Care Reason For Visit: COVID 19 Discharge Diagnosis: Covid-19 pneumonia Activity: Resume your previous activity Non-emergency contact: Primary Care Provider Call non-emergency contact if: your symptoms worsen and your rectal temperature is above 100.4 Follow-up/Referrals: Kurt Howe MD [Primary Care Provider] - (PLEASE CALL YOUR PRIMARY CARE PROVIDER TO SCHEDULE A DISCHARGE FOLLOW-UP APPOINTMENT WITHIN 7-10 DAYS.) Diet: Regular Addtl Attending Provider Instructions: Mr. Sandoval, You were admitted to the hospital with Covid-19 pneumonia. We gave you steroids, antibiotics, and remdesivir to help reduce viral loads, reduce inflammation, and treat any possible bacterial co-infection. Fortunately, you are doing significantly better. Your oxygen requirement has gone away, and you have been able to get up and move around without the coughing, dizziness, and drop in oxygen that were occurring before you came in. Your appetite is improving too which to me has been an anecdotal sign of recovery. Since you are doing so well, we are discharging you from the hospital. Please continue to drink plenty of fluids to remain hydrated. Gatorade or even Pedia-Lyte both help replenish vitamins and minerals and can help keep you hydrated better than water or sodas. Pending Studies at Discharge: No Stand-Alone Forms: My [facility], Smoking Cessation Medications and DC Order Prescriptions: New dexamethasone [Decadron] 6 mg tablet 6 mg PO DAILY Qty: 5 RF: 0 Continued simvastatin 20 mg Tablet 20 mg PO DAILY RF: 0 losartan 25 mg Tablet 0 mg PO DAILY RF: 0 Discontinued Xarelto 10 mg Tablet 0 mg PO DAILY RF: 0 Discharge Orders: Discharge Order (Routine); Ordered 04/14/21 Ordered By: August Walters Admission Data Admit Date/Time: 04/10/21 21:10 Attending Provider: August Walters Admit Provider: Jose Daniel Morris Primary Care Provider: Kurt Howe Other Providers: Andi Claudio Other Interventions: Discharge Summary Assessment (RN) Last Done: 04/14/21 13:42 Coding Level of Care Code D/C DAY MANAGEMENT <30 MINS Diagnoses 2019 novel coronavirus-infected pneumonia (NCIP) U07.1; J12.82 Hypertension I10 High cholesterol E78.00 DVT prophylaxis Z29.9 Asthma J45.909
== END 2021-04-14 14:40 | disposition home or self-care (01) | DRG 177 ==
LOC: ED 18:00 → SUATTDRO 21:10 → 2W 21:10